=== PATIENT | male | born 2000 | race Caucasian/White ===

== ENCOUNTER 2024-11-19 11:53 | Emergency (ER) | payer BC ==
[2024-11-19] MEDS: Ondansetron 4 MG/2 ML SDV IVPUSH ONE (12:59)
[2024-11-19] MEDS: Ketorolac 30 MG/ML SDV IVPUSH ONE (15:02)
== END 2024-11-19 16:51 | disposition home or self-care (01) ==
LOC: JP.ED 11:53
DX: K52.9 Noninfective gastroenteritis and colitis, unspecified (principal); F17.200 Nicotine dependence, unspecified, uncomplicated; Z79.899 Other long term (current) drug therapy; Z90.49 Acquired absence of other specified parts of digestive tract
CPT/HCPCS: 96361; 96374; 96375; 99282; 99283; J1171; J1885; J2405; J7030